=== PATIENT | female | born 1995 | race Caucasian/White ===

== ENCOUNTER 2016-11-05 11:30 | Emergency (ER) | payer MEDICAID ==
[~2016-11-05] VITALS: Ht 160 cm; Wt 82.5 kg
[2016-11-05 14:06] VITALS: BP 118/70
== END 2016-11-05 13:40 | disposition home or self-care (01) ==
LOC: ED 11:30
DX: J02.9 Acute pharyngitis, unspecified (principal); R10.2 Pelvic and perineal pain
CPT/HCPCS: J0696

== ENCOUNTER 2017-05-20 18:48 | Emergency (ER) | payer MEDICAID ==
[~2017-05-20] VITALS: Ht 162.6 cm; Wt 83.7 kg
[2017-05-20 21:27] VITALS: BP 108/66
== END 2017-05-20 21:27 | disposition home or self-care (01) ==
LOC: ED 18:48
DX: L60.0 Ingrowing nail (principal)